=== PATIENT | female | born 1985 | race Caucasian/White ===

== ENCOUNTER 2016-12-27 08:27 | Emergency (ER) | payer BC, OTHER ==
[2016-12-27 08:38] VITALS: BP 115/72; PULSE 74; RESP 18; TEMP 98.2; O2SAT 99
--- NOTE | 2016-12-27 08:45 | UCPHY ---
H & P Time Seen by Provider: 12/27/16 08:39 Patient Type: New HPI/ROS: This patient was her foot in a pothole yesterday with pain to the left foot in the midfoot region. She reports moderate pain at baseline this worse when she walks. She notes no other exacerbating factors. She denies any other injuries from the fall. ROS: Musculoskeletal: No significant ankle pain. No other injuries. Neuro: No numbness or tingling 5 point ROS is otherwise negative Past Medical/Surgical History: Otherwise healthy Smoking Status: Never smoked Physical Exam: Physical Exam Vital signs are normal. General: No acute distress HEENT: Atraumatic. Eyes: Pupils equal and react to light. Extraocular motions are intact. Lungs: No respiratory distress. Cardiac: Brisk capillary refill is intact throughout. Pulses are 2+ and symmetric in the affected extremity. Skin: No rash or pallor. Extremities: Atraumatic normal except for left foot Left foot: Patient has mild tenderness to moderate tenderness to the left midfoot dorsally with perhaps slight swelling. No ecchymosis. No 5th metatarsal tenderness. Ankle is atraumatic normal on exam Neuro: Alert and oriented x3 with no sensorimotor deficits. Initial differential diagnosis: Foot sprain versus fracture. Constitutional: Initial Vital Signs Temperature (C) 36.8 C 12/27/16 08:36 Heart Rate 74 12/27/16 08:36 Respiratory Rate 18 12/27/16 08:36 Blood Pressure 115/72 12/27/16 08:36 O2 Sat (%) 99 12/27/16 08:36 O2 Delivery Mode Room Air Allergies/Adverse Reactions: No Known Allergies Allergy (Unverified 12/27/16 08:35) Home Medications: Medication Instructions Recorded NO HOME MEDS 06/30/13 MDM/Departure - MDM Diagnostics: Foot x-ray: Negative by my interpretation Imaging: I viewed and interpreted images myself ED Course/Re-evaluation: Counseled patient regarding her foot sprain we placed her in a postop shoe. - Depart Disposition: Home, Routine, Self-Care Condition: Good Instructions: Foot Sprain (ED) Additional Instructions: Diagnosis: Foot sprain Plan: Postop shoe Cane or crutches if needed for comfort Ibuprofen and Tylenol for discomfort as needed Ice 20 minutes at a time 3 times a day for the next few days Follow up with Dr. Thomas -community program assistant if her symptoms are not improving over the next 7-10 days. Referrals: NONE *PRIMARY CARE P,. [Primary Care Provider] - As per Instructions Ruddy Thomas DPM [Doctor of Podiatric Medicine] - As per Instructions - PQRS PQRS Measurement: NA
== END 2016-12-27 09:25 | disposition home or self-care (01) ==
LOC: CED 08:27
DX: S93.602A Unspecified sprain of left foot, initial encounter (principal)
CPT/HCPCS: 73630-PO; G0463-PO